=== PATIENT | female | born 1945 | race Caucasian/White ===

== ENCOUNTER → 2020-01-20 | Outpatient (REF) | payer MEDICARE, OTHER | LOC: M LAB REF 14:53 | PROVIDERS: ATTEND Physician Assistant | DX: D48.5 Neoplasm of uncertain behavior of skin (principal) ==

== ENCOUNTER → 2020-03-07 | Outpatient (REF) | payer MEDICARE, OTHER | LOC: M LAB REF 19:11 | PROVIDERS: ATTEND Physician Assistant | DX: L57.0 Actinic keratosis (principal) ==

== ENCOUNTER → 2021-03-29 | Outpatient (CLI) | payer MEDICARE, OTHER ==
--- NOTE | 2021-03-29 13:13 | PFTRPT ---
Site: [facility], [address] [place] [address], [id number] ID: [id number] Name: VANE KEMP Visit Date: 03/29/2021 Second ID: [id number] Referring Doctor: ESPINOZA RODRIGUEZ Reviewing Doctor: Tanvir Becerra MD Consulting Utility Forester: Janelle PIERCE RRT Age: 75 : 1945 Sex: Female Race: Height: 62.00 Inches Weight: 158.00 Lbs BSA: 1.73 Order IDs: [id number] Requested Test(s): <RESP-PFT.PFT B/A> Diagnosis: R05 test meet the ATS standards for acceptability and repeatability. Pt was given four puffs of albuterol for post bronchodilator. Review Status: Not Reviewed Pre-Bronch Post-Bronch Pred Actual %Pred Actual %Chng SPIROMETRY FVC (L) 2.48 2.61 105 2.81 7 FEV1 (L) 1.84 2.12 115 2.21 4 FEV1/FVC (%) 74 81 109 79 -2 FEF 25% (L/sec) 4.35 3.25 74 3.02 -6 FEF 50% (L/sec) 3.13 2.97 95 2.71 -8 FEF 75% (L/sec) 0.81 0.92 113 1.47 59 FEF 25-75% (L/sec) 1.43 2.25 157 2.47 9 FEF Max (L/sec) 4.74 3.74 78 3.31 -11 FIVC (L) 2.65 2.48 -6 FIF 50% (L/sec) 3.08 2.29 74 2.84 24 FIF Max (L/sec) 2.30 2.88 25 MVV (L/min) 78 60 76 Expiratory Time (sec) 8.02 6.46 -19 Back Extrap Vol (L) 0.06 0.07 12 Time To FEFmax (sec) 0.086 0.098 14 LUNG VOLUMES SVC (L) 2.51 2.97 118 IC (L) 2.02 2.30 113 ERV (L) 0.49 0.66 135 TGV (L) 2.73 2.89 105 RV (Pleth) (L) 2.24 2.22 99 TLC (Pleth) (L) 4.75 5.19 109 RV/TLC (Pleth) (%) 47 43 91 DIFFUSION DLCOunc (ml/min/mmHg) 18.89 16.83 89 DLCOcor (ml/min/mmHg) 18.89 17.27 91 DL/VA (ml/min/mmHg/L) 3.98 3.54 89 VA (L) 4.75 4.87 102 BHT (sec) 10.30 IVC (L) 2.72 TLC (SB) (L) 5.02 AIRWAYS RESISTANCE Raw (cmH2O/L/s) 1.86 1.21 65 Gaw (L/s/cmH2O) 1.03 0.84 81 sRaw (cmH2O*s) 4.76 3.86 81 sGaw (1/cmH2O*s) 0.20 0.26 130 BLOOD GASES Hgb (gm/dL) 12.6
== END ==
LOC: M CARPUL 12:18
PROVIDERS: ATTEND Nurse Practitioner Family
DX: R05 Cough (principal)

== ENCOUNTER → 2021-04-02 | Outpatient (CLI) | payer MEDICARE, OTHER ==
--- NOTE | 2021-04-03 11:29 | REP ---
INDICATION: COUGH COMPARISON: No prior chest CTs for comparison TECHNIQUE: Standard helical technique without intravenous contrast FINDINGS: Limited evaluation of the mediastinum and pulmonary fang shows no evidence of a mass or adenopathy. There is a small hiatal hernia status quo. The imaged upper abdomen and imaged osseous structures are within normal limits. Evaluation of the lung jeffries shows shows no abnormal nodules, masses, or opacities. IMPRESSION: CT findings are within normal limits. <Electronically signed by Fautso Humphrey > 04/03/21 [id number]
== END ==
LOC: M RAD 14:05
PROVIDERS: ATTEND Nurse Practitioner Family
DX: R05 Cough (principal)

== ENCOUNTER → 2021-10-01 | Outpatient (CLI) | payer MEDICARE, OTHER | LOC: M RAD 14:09 | PROVIDERS: ATTEND Nurse Practitioner Family | DX: Z87.891 Personal history of nicotine dependence (principal) ==

== ENCOUNTER → 2022-11-11 | Outpatient (REF) | payer MEDICARE, OTHER | LOC: M SFHCDERM 14:48 | PROVIDERS: ATTEND Physician Assistant | DX: C44.719 Basal cell carcinoma of skin of left lower limb, including hip (principal) ==

== ENCOUNTER 2024-11-10 16:13 | Inpatient (IN) | payer MEDICARE, OTHER ==
[~2024-11-10] VITALS: Ht 157.5 cm; Wt 67.8 kg
[2024-11-10] MEDS ORDERED: FLUO40CA PO (17:08)
[2024-11-10] MEDS ORDERED: FLUO-290 PO (17:08)
[2024-11-10] MEDS ORDERED: INSULANT SQ (17:08)
[2024-11-10] MEDS ORDERED: FLUO1TAB PO (17:08)
[2024-11-10 17:15] LABS: BASO % 0.3 % (0.0-1.0); EOS % 0.2 % (0.0-3.0); HEMATOCRIT 40.1 % (36.0-47.0); HEMOGLOBIN 13.2 g/dl (12.0-15.5); LYMPH # 2.9 10^3/uL (1.5-5.0); LYMPH % 19.6 % (24.0-44.0); MEAN CORPUSCULAR HEMOGLOBIN 30.8 pg (27.0-33.0); MEAN CORPUSCULAR HGB CONC 32.9 g/dl (32.0-36.5); MEAN CORPUSCULAR VOLUME 93.5 fl (80.0-96.0); MONO # 1.1 10^3/uL (0.0-0.8); MONO % 7.3 % (2.0-8.0); NEUTROPHILS # 10.7 10^3/uL (1.5-8.5); NEUTROPHILS % 72.1 % (36.0-66.0); PLATELET COUNT, AUTOMATED 490 10^3/uL (150-450); RED BLOOD COUNT 4.29 10^6/uL (4.00-5.40); WHITE BLOOD COUNT 14.8 10^3/uL (4.0-10.0)
[2024-11-10] MEDS ORDERED: ESOM40CA35 PO (17:16)
[2024-11-10] MEDS ORDERED: LORA1TAB23 PO (17:16)
[2024-11-10] MEDS ORDERED: LISI10TA22 PO (17:16)
[2024-11-10] MEDS ORDERED: VITA100T14 PO (17:17)
[2024-11-10] MEDS ORDERED: PITA2TAB2 PO (17:17)
[2024-11-10] MEDS ORDERED: CLOP75TA2 PO (17:17)
[2024-11-10] MEDS ORDERED: RAME8TAB2 PO (17:17)
[2024-11-10] MEDS ORDERED: MEMA10TA PO (17:17)
[2024-11-10] MEDS ORDERED: HOME MED LIST COMPLETE! XX SCH (17:20)
[2024-11-10 17:26] LABS: KETONE, URINE AUTO RFX TRACE mg/dL (NEGATIVE); MUCUS, URINE RFX SMALL (NEGATIVE); RBC, URINE AUTO RFX 0 /HPF (0-3); SQUAM EPITHELIAL CELL UR AURFX 6 /HPF (0-6)
[2024-11-10 17:31] LABS: LEUKOCYTE ESTERASE UR AUTO RFX 2+ (NEGATIVE); NITRITE, URINE AUTO RFX POSITIVE (NEGATIVE); WBC, URINE AUTO RFX TNTC /HPF (0-3)
[2024-11-10 17:37] LABS: CALCIUM LEVEL 8.7 MG/DL (8.3-10.6); CREATININE FOR GFR 1.02 MG/DL (0.55-1.30); GLOMERULAR FILTRATION RATE 55.6 (>32); POTASSIUM SERUM 4.3 MMOL/L (3.5-5.1)
[2024-11-10] MEDS: cefTRIAXone SOD 1 GM in DEXTROSE 5% (D5W) ADV/MINI-BAG 50 ML IV ONE (18:24)
[2024-11-10] MEDS: LORazepam 0.5 MG TAB PO SCH (21:00)
[2024-11-10] MEDS: RAMELTEON 8 MG TAB (ROZEREM) PO SCH (22:56)
[2024-11-10] MEDS: MEMANTINE 5MG TABLET (NAMENDA) PO SCH (22:56)
[2024-11-10] MEDS: ACETAMINOPHEN *IV* 1,000 MG in IV 1 EA IV ONE (22:56)
[2024-11-11] MEDS ORDERED: GLUCAGON INJ 1MG VIAL SC PRN (00:05)
[2024-11-11] MEDS ORDERED: GLUCOSE 4 GM CHEW PO PRN (00:05)
[2024-11-11] MEDS ORDERED: DEXTROSE 50% 50ML SYRINGE IV PRN (00:05)
[2024-11-11 01:04] VITALS: BP 123/57; TEMP 97.5; O2SAT 94
[2024-11-11 04:00] VITALS: BP 132/60; TEMP 97.3; O2SAT 96
[2024-11-11] MEDS: cefTRIAXone SOD 1 GM in DEXTROSE 5% (D5W) ADV/MINI-BAG 50 ML IV SCH (05:49)
[2024-11-11 06:26] LABS: HEMOGLOBIN 13.2 g/dl (12.0-15.5); MEAN CORPUSCULAR HEMOGLOBIN 29.9 pg (27.0-33.0); MEAN CORPUSCULAR HGB CONC 32.2 g/dl (32.0-36.5); PLATELET COUNT, AUTOMATED 441 10^3/uL (150-450); RED BLOOD COUNT 4.41 10^6/uL (4.00-5.40); WHITE BLOOD COUNT 13.8 10^3/uL (4.0-10.0)
[2024-11-11 06:56] LABS: CALCIUM LEVEL 8.5 MG/DL (8.3-10.6); CREATININE FOR GFR 0.94 MG/DL (0.55-1.30); GLOMERULAR FILTRATION RATE 61.3 (>32); MAGNESIUM LEVEL 1.5 MG/DL (1.8-2.4); POTASSIUM SERUM 3.9 MMOL/L (3.5-5.1)
[2024-11-11] MEDS ORDERED: ENOXAPARIN 40MG/0.4ML SYRINGE (J1650 PER 10MG) SC SCH (09:00)
[2024-11-11] MEDS: INSULIN LISPRO (NovoLOG) PER UNIT SC SCH ×2 (09:36→20:50)
[2024-11-11] MEDS: ENOXAPARIN 40MG/0.4ML SYRINGE (J1650 PER 10MG) SC SCH (09:38)
[2024-11-11] MEDS: LanTUS (INSULIN GLARGINE INJ) 1 UNITS/0.01 ML SC SCH (09:38)
[2024-11-11] MEDS: FLUoxetine 20MG CAP PO SCH (09:39)
[2024-11-11] MEDS: LACTOBACILLUS ACIDOPHILUS CAP (BACID) PO SCH (09:39)
[2024-11-11] MEDS: PANTOPRAZOLE 40MG TAB (PROTONIX) PO SCH (09:39)
[2024-11-11] MEDS: FLUoxetine 10 MG CAP PO SCH (09:39)
[2024-11-11] MEDS: CLOPIDOGREL 75 MG TAB PO SCH (09:39)
[2024-11-11] MEDS: MEMANTINE 5MG TABLET (NAMENDA) PO SCH (09:40)
[2024-11-11] MEDS: PYRIDOXINE 50 MG TAB PO SCH (09:40)
[2024-11-11] MEDS: MAG SULF 1GM/100ML (MAG RUN) 1 GM in IV 1 EA IV SCH (09:41)
[2024-11-11 12:30] VITALS: BP 124/57; TEMP 97.9; O2SAT 93
[2024-11-11] MEDS: RAMELTEON 8 MG TAB (ROZEREM) PO SCH (20:20)
[2024-11-11 20:41] VITALS: BP 132/65; TEMP 97.9; O2SAT 94
[2024-11-12 04:45] VITALS: BP 98/57; TEMP 97.2; O2SAT 91
[2024-11-12 05:59] LABS: BASO % 0.4 % (0.0-1.0); EOS # 0.1 10^3/uL (0.0-0.5); EOS % 0.8 % (0.0-3.0); HEMATOCRIT 37.2 % (36.0-47.0); HEMOGLOBIN 12.4 g/dl (12.0-15.5); LYMPH # 2.9 10^3/uL (1.5-5.0); LYMPH % 26.9 % (24.0-44.0); MEAN CORPUSCULAR HEMOGLOBIN 30.7 pg (27.0-33.0); MEAN CORPUSCULAR HGB CONC 33.3 g/dl (32.0-36.5); MEAN CORPUSCULAR VOLUME 92.1 fl (80.0-96.0); MONO % 9.7 % (2.0-8.0); NEUTROPHILS # 6.6 10^3/uL (1.5-8.5); NEUTROPHILS % 61.5 % (36.0-66.0); PLATELET COUNT, AUTOMATED 438 10^3/uL (150-450); RED BLOOD COUNT 4.04 10^6/uL (4.00-5.40); WHITE BLOOD COUNT 10.7 10^3/uL (4.0-10.0)
[2024-11-12 06:27] LABS: CALCIUM LEVEL 8.6 MG/DL (8.3-10.6); CREATININE FOR GFR 0.97 MG/DL (0.55-1.30); GLOMERULAR FILTRATION RATE 59.1 (>32); MAGNESIUM LEVEL 1.7 MG/DL (1.8-2.4); POTASSIUM SERUM 3.8 MMOL/L (3.5-5.1)
[2024-11-12] MEDS ORDERED: CEFD300CAP PO (09:26)
[2024-11-12] MEDS: ATORVASTATIN 10 MG TAB PO SCH (09:45)
[2024-11-12 09:50] VITALS: BP 132/94
[2024-11-12] MEDS: MAG SULF 1GM/100ML (MAG RUN) 1 GM in IV 1 EA IV SCH (10:13)
[2024-11-12 12:00] VITALS: BP 123/53; TEMP 97.7; O2SAT 92
[2024-11-12 12:35] VITALS: BP 123/53; TEMP 97.7; O2SAT 92
[2024-11-12] MEDS ORDERED: CEFDINIR 300 MG CAP (OMNICEF) PO SCH (17:00)
== END 2024-11-12 13:30 | disposition home or self-care (01) | DRG 690 ==
LOC: EDBD 16:13 → M ED 16:13 → M ED INP 22:51 → M MS5PR 11-11 01:04
PROVIDERS: ADMIT Student in an Organized Health Care Education/Training Program; ATTEND Internal Medicine
DX: N39.0 Urinary tract infection, site not specified (principal); E11.51 Type 2 diabetes mellitus with diabetic peripheral angiopathy without gangrene; E78.5 Hyperlipidemia, unspecified; B96.20 Unspecified Escherichia coli [E. coli] as the cause of diseases classified elsewhere; K21.9 Gastro-esophageal reflux disease without esophagitis; F39 Unspecified mood [affective] disorder; R05.9 Cough, unspecified; I10 Essential (primary) hypertension; F03.90 Unspecified dementia, unspecified severity, without behavioral disturbance, psychotic disturbance, mood disturbance, and anxiety; Z66 Do not resuscitate; Z90.49 Acquired absence of other specified parts of digestive tract; Z87.891 Personal history of nicotine dependence; Z79.02 Long term (current) use of antithrombotics/antiplatelets; Z79.4 Long term (current) use of insulin; Z79.899 Other long term (current) drug therapy; Z88.2 Allergy status to sulfonamides; Z88.8 Allergy status to other drugs, medicaments and biological substances

== ENCOUNTER 2024-11-15 10:30 | Emergency (ER) | payer MEDICARE, OTHER ==
[~2024-11-15] VITALS: Ht 157.5 cm; Wt 67.5 kg
[~2024-11-15 10:30] MED LIST: CEFD300CAP PO; CLOP75TA2 PO; ESOM40CA35 PO; FLUO-290 PO; FLUO1TAB PO; FLUO40CA PO; INSULANT SQ; LISI10TA22 PO; LORA1TAB23 PO; MEMA10TA PO; PITA2TAB2 PO; RAME8TAB2 PO; VITA100T14 PO
[2024-11-15 11:23] LABS: HEMOGLOBIN 12.7 g/dl (12.0-15.5); MEAN CORPUSCULAR HEMOGLOBIN 30.6 pg (27.0-33.0); MEAN CORPUSCULAR HGB CONC 32.6 g/dl (32.0-36.5); PLATELET COUNT, AUTOMATED 459 10^3/uL (150-450); RED BLOOD COUNT 4.15 10^6/uL (4.00-5.40); WHITE BLOOD COUNT 9.8 10^3/uL (4.0-10.0)
[2024-11-15 11:59] LABS: SALICYLATE LEVEL < 3.0 MG/DL (<30)
[2024-11-15 12:00] LABS: ETHYL ALCOHOL (ETHANOL) 0.005 % (0.000-0.010)
[2024-11-15 12:02] LABS: ALBUMIN 3.1 G/DL (3.2-5.2); ALKALINE PHOSPHATASE 54 U/L (35-104); ALT/SGPT 13 U/L (7.0-40); AST/SGOT 12 U/L (<34); BILIRUBIN,DIRECT 0.2 MG/DL (<0.4); BILIRUBIN,TOTAL 0.5 MG/DL (0.3-1.2); BLOOD UREA NITROGEN 11 MG/DL (9-23); CALCIUM LEVEL 8.7 MG/DL (8.3-10.6); CARBON DIOXIDE LEVEL 25 MMOL/L (20-31); CHLORIDE LEVEL 106 MMOL/L (98-107); CREATININE FOR GFR 0.84 MG/DL (0.55-1.30); GLOMERULAR FILTRATION RATE 70.2 (>32); GLUCOSE, FASTING 141 MG/DL (74-106); POTASSIUM SERUM 3.8 MMOL/L (3.5-5.1); SODIUM LEVEL 140 MMOL/L (136-145); THYROID STIMULATING HORMONE 1.443 uIU/ML (0.55-4.78); TOTAL PROTEIN 5.9 G/DL (5.7-8.2)
[2024-11-15 13:00] LABS: AMPHETAMINES LEVEL URINE NEGATIVE (NEGATIVE); BARBITURATES URINE NEGATIVE (NEGATIVE); COCAINE METABOLITE URINE NEGATIVE (NEGATIVE); METHADONE URINE NEGATIVE (NEGATIVE)
[2024-11-15 13:01] LABS: BENZODIAZEPINES URINE NEGATIVE (NEGATIVE); CANNABINOIDS URINE NEGATIVE (NEGATIVE); OPIATES URINE NEGATIVE (NEGATIVE); PHENCYCLIDINE URINE NEGATIVE (NEGATIVE)
[2024-11-15] MEDS ORDERED: ACET-897 PO (14:43)
[2024-11-15] MEDS ORDERED: ATIV1TAB10 PO (14:43)
[2024-11-15] MEDS ORDERED: CEFD300CAP PO (14:44)
[2024-11-15] MEDS ORDERED: HOME MED LIST COMPLETE! XX SCH (14:45)
[2024-11-15 15:33] VITALS: BP 132/57; TEMP 98.5; O2SAT 96
== END 2024-11-15 15:42 | disposition home or self-care (01) ==
LOC: M ED 10:30
DX: F32.A Depression, unspecified (principal); E11.9 Type 2 diabetes mellitus without complications; I10 Essential (primary) hypertension; E78.5 Hyperlipidemia, unspecified; K21.9 Gastro-esophageal reflux disease without esophagitis; F17.210 Nicotine dependence, cigarettes, uncomplicated; Z88.2 Allergy status to sulfonamides; Z88.8 Allergy status to other drugs, medicaments and biological substances; Z79.1 Long term (current) use of non-steroidal anti-inflammatories (NSAID); Z79.2 Long term (current) use of antibiotics; Z79.4 Long term (current) use of insulin; Z79.899 Other long term (current) drug therapy

== ENCOUNTER 2024-11-15 15:50 | Inpatient (IN) | payer MEDICARE, OTHER ==
[~2024-11-15] VITALS: Ht 157.5 cm; Wt 75.9 kg
[~2024-11-15 15:50] MED LIST changes: +ACET-897 PO; +ATIV1TAB10 PO
[2024-11-15 20:19] LABS: HEMATOCRIT 40.3 % (36.0-47.0); HEMOGLOBIN 13.3 g/dl (12.0-15.5); MEAN CORPUSCULAR VOLUME 93.9 fl (80.0-96.0); PLATELET COUNT, AUTOMATED 496 10^3/uL (150-450); RED BLOOD COUNT 4.29 10^6/uL (4.00-5.40); WHITE BLOOD COUNT 11.7 10^3/uL (4.0-10.0)
[2024-11-15] MEDS ORDERED: HOME MED LIST COMPLETE! XX SCH (20:40)
[2024-11-15 20:46] LABS: ETHYL ALCOHOL (ETHANOL) 0.004 % (0.000-0.010)
[2024-11-15 20:48] LABS: SALICYLATE LEVEL < 3.0 MG/DL (<30)
[2024-11-15 20:51] LABS: ALBUMIN 3.5 G/DL (3.2-5.2); ALKALINE PHOSPHATASE 65 U/L (35-104); ALT/SGPT 16 U/L (7.0-40); AST/SGOT 11 U/L (<34); BILIRUBIN,DIRECT 0.1 MG/DL (<0.4); BILIRUBIN,TOTAL 0.4 MG/DL (0.3-1.2); BLOOD UREA NITROGEN 15 MG/DL (9-23); CALCIUM LEVEL 9.3 MG/DL (8.3-10.6); CARBON DIOXIDE LEVEL 27 MMOL/L (20-31); CHLORIDE LEVEL 105 MMOL/L (98-107); CREATININE FOR GFR 0.82 MG/DL (0.55-1.30); GLOMERULAR FILTRATION RATE 72.3 (>32); GLUCOSE, FASTING 116 MG/DL (74-106); POTASSIUM SERUM 3.9 MMOL/L (3.5-5.1); SODIUM LEVEL 139 MMOL/L (136-145); THYROID STIMULATING HORMONE 1.609 uIU/ML (0.55-4.78); TOTAL PROTEIN 6.6 G/DL (5.7-8.2)
[2024-11-15 20:57] LABS: AMPHETAMINES LEVEL URINE NEGATIVE (NEGATIVE); BARBITURATES URINE NEGATIVE (NEGATIVE); BENZODIAZEPINES URINE NEGATIVE (NEGATIVE); COCAINE METABOLITE URINE NEGATIVE (NEGATIVE); METHADONE URINE NEGATIVE (NEGATIVE); OPIATES URINE NEGATIVE (NEGATIVE)
[2024-11-15 20:58] LABS: CANNABINOIDS URINE NEGATIVE (NEGATIVE); PHENCYCLIDINE URINE NEGATIVE (NEGATIVE)
[2024-11-15] MEDS ORDERED: traZODone 50 MG TAB PO PRN (23:30)
[2024-11-15] MEDS ORDERED: diphenhydrAMINE 25MG CAP PO PRN (23:30)
[2024-11-15] MEDS ORDERED: MAALOX 30 ML SUSP *UDC PO PRN (23:30)
[2024-11-15] MEDS ORDERED: ACETAMINOPHEN 325 MG TAB PO PRN (23:30)
[2024-11-15] MEDS ORDERED: MOM 30ML SUSPENSION UDC PO PRN (23:30)
[2024-11-15] MEDS: LORazepam 0.5 MG TAB PO ONE (23:36)
[2024-11-15] MEDS: MEMANTINE 5MG TABLET PO ONE (23:36)
[2024-11-15] MEDS: FLUoxetine 10 MG CAP PO ONE (23:37)
[2024-11-15] MEDS: CEFDINIR 300 MG CAP PO ONE (23:37)
[2024-11-15] MEDS: RAMELTEON 8 MG TAB PO ONE (23:38)
[2024-11-16 01:13] VITALS: BP 138/71; TEMP 97.6; O2SAT 94
[2024-11-16] MEDS: LanTUS (INSULIN GLARGINE INJ) 1 UNITS/0.01 ML SQ SCH (09:00)
[2024-11-16] MEDS: CLOPIDOGREL 75 MG TAB PO SCH (09:54)
[2024-11-16] MEDS: LORazepam 0.5 MG TAB PO SCH (09:55)
[2024-11-16 18:06] VITALS: BP 111/66; TEMP 96.9
[2024-11-16] MEDS: FLUoxetine 20MG CAP PO SCH (20:26)
[2024-11-16] MEDS: RAMELTEON 8 MG TAB PO SCH (20:27)
[2024-11-17 06:32] VITALS: BP 150/68; TEMP 97.9; O2SAT 95
[2024-11-17 14:46] VITALS: BP 111/56; TEMP 97.1; O2SAT 95
[2024-11-17] MEDS ORDERED: GLUCOSE 4 GM CHEW PO PRN (19:15)
[2024-11-17] MEDS ORDERED: DEXTROSE 50% 50ML SYRINGE IV PRN (19:15)
[2024-11-17] MEDS ORDERED: GLUCAGON INJ 1MG VIAL SC PRN (19:15)
[2024-11-17] MEDS: MEMANTINE 5MG TABLET PO SCH (21:26)
[2024-11-17] MEDS: PANTOPRAZOLE 40MG TAB PO SCH (21:27)
[2024-11-18 06:28] VITALS: BP 149/67; TEMP 97.2; O2SAT 100
[2024-11-18 08:59] VITALS: BP 99/57
[2024-11-18 15:33] VITALS: BP 104/52; TEMP 97.8; O2SAT 98
[2024-11-19 07:06] VITALS: BP 149/66; TEMP 98.3; O2SAT 96
[2024-11-19 09:49] VITALS: BP 147/68
[2024-11-19 09:54] VITALS: BP 147/68
[2024-11-19] MEDS ORDERED: PANT40TA29 PO (12:40)
== END 2024-11-19 13:22 | disposition home or self-care (01) | DRG 881 ==
LOC: M ED 15:50 → M ED INP 23:27 → M PSY 11-16 01:22
PROVIDERS: ADMIT Psychiatry & Neurology Neurology; ATTEND Psychiatry & Neurology Psychiatry
DX: F32.9 Major depressive disorder, single episode, unspecified (principal); R45.851 Suicidal ideations; E11.319 Type 2 diabetes mellitus with unspecified diabetic retinopathy without macular edema; I10 Essential (primary) hypertension; E78.5 Hyperlipidemia, unspecified; K21.9 Gastro-esophageal reflux disease without esophagitis; F17.210 Nicotine dependence, cigarettes, uncomplicated; E11.51 Type 2 diabetes mellitus with diabetic peripheral angiopathy without gangrene; F03.90 Unspecified dementia, unspecified severity, without behavioral disturbance, psychotic disturbance, mood disturbance, and anxiety; Z88.2 Allergy status to sulfonamides; Z88.8 Allergy status to other drugs, medicaments and biological substances; Z79.1 Long term (current) use of non-steroidal anti-inflammatories (NSAID); Z79.4 Long term (current) use of insulin; Z79.899 Other long term (current) drug therapy